=== PATIENT | female | born 1935 | race Caucasian/White ===

== ENCOUNTER 2020-04-12 11:36 | Emergency (ER) | payer OTHER ==
[~2020-04-12] VITALS: Ht 154.9 cm; Wt 55.3 kg
[2020-04-12 11:40] VITALS: BP_SYST 146
--- NOTE | 2020-04-12 11:43 | NUR ---
Patient triaged and placed in waiting room. VSS and patient appears in no acute distress at this time. Accompanied by clinical fellow , awaiting available bed, and MD notified of need for MSE.
[2020-04-12] MEDS ORDERED: NACL 0.9% 1,000 ML IV ONE (12:15)
[2020-04-12 13:06] LABS: BASOPHILS # (AUTO) 0.1 K/uL (0.0-0.2); BASOPHILS % (AUTO) 0.7 % (0.0-2.0); EOSINOPHILS # (AUTO) 0.1 K/uL (0.0-0.4); EOSINOPHILS % (AUTO) 1.2 % (0.0-4.0); HEMATOCRIT 36.1 % (36-48); HEMOGLOBIN 12.5 g/dL (12.0-16.0); LYMPHOCYTES % (AUTO) 12.2 % (20.5-51.5); MEAN CORPUSCULAR HEMOGLOBIN 33 pg (27-31); MEAN CORPUSCULAR HGB CONC 35 % (32-36); MEAN CORPUSCULAR VOLUME 94 fL (79.0-98.0); MONOCYTES # (AUTO) 0.8 K/uL (0.0-1.0); MONOCYTES % (AUTO) 9.6 % (1.7-9.3); NEUTROPHILS # (AUTO) 6.5 K/uL (1.8-7.7); NEUTROPHILS % (AUTO) 76.3 % (40.0-70.0); PLATELET COUNT (AUTO) 362 K/uL (130-430); RED BLOOD CELL COUNT(AUTO) 3.83 MIL/uL (4.2-6.2); WHITE BLOOD COUNT (AUTO) 8.5 K/uL (4.8-10.8)
[2020-04-12 13:15] LABS: ANION GAP 10 (5-15); CALCIUM 8.6 mg/dL (8.4-11.0); CHLORIDE 102 mmol/L (98-107); CREATININE 0.55 mg/dL (0.55-1.30); GLUCOSE 104 mg/dL (70-99); SODIUM SERUM 134 mmol/L (136-145); UREA NITROGEN, BLOOD 6 mg/dL (8-21)
[2020-04-12 13:21] LABS: ALANINE AMINOTRANSFERASE 20 U/L (12-78); ALBUMIN 3.1 g/dL (3.4-4.8); ASPARTATE AMINOTRANSFERASE 25 U/L (10-37); TOTAL BILIRUBIN 0.6 mg/dL (0.0-1.0)
--- NOTE | 2020-04-12 15:15 | NUR ---
Patient to ER bed 7 to gown for evaluation. Side rails up. Report given to Sandra BANKS.
--- NOTE | 2020-04-12 15:20 | NUR ---
Patient presented to ER C/O ALOC. Patient BIB BLS, patient A&Ox2, skin pink & warm, denies pain, denies N/V/D. Per EMS patient patient is "more altered than usual". Patient reports feeeling weak. PT states "my doesnt want me at home"
--- NOTE | 2020-04-12 15:25 | NUR ---
, Jj Morales of PT called for update. Jj states he can not care for patient at home and he was informed by patients PMD to "bring PT to ER for SNF placement". PT will be assessed by ER MD and I informed Jj He can call insurance phone number and discuss placement with renal case manager.
--- NOTE | 2020-04-12 16:15 | NUR ---
Oscar Nina at bedside for assessment.
--- NOTE | 2020-04-12 16:32 | NUR ---
SS notes: WIENER PACKER received a call from Sandra, ED RN regarding patient who came in for "placement". WIENER PACKER met with patient at bedside. Pt alert and oriented x1. Pt appeared to be confused and responds to name. WIENER PACKER phoned spouse, Jj @ [phone]. Per Jj, pt has been confused for 3-4 years now and is worsening. Per Jj, pt "can't keep her balance" and believes pt has "dementia". Per Jj, pt receives [facility] at home for nursing and PT. Per Jj, he was told by pt's PCP to bring pt to ED for placement. WIENER PACKER educated Jj on process for memory care or assisted living placement; provided Jj with Assisted living combination operator phone number and encouraged Jj to call insurance or SS if any questions/concerns arise. WIENER PACKER provided pt with assisted living combination operator phone call card and [facility]. Sandra ED RN notified.
[2020-04-12 16:33] LABS: BILIRUBIN,URINE NEGATIVE (NEGATIVE); BLOOD, URINE NEGATIVE (NEGATIVE); CLARITY/URINE CLEAR (CLEAR); COLOR,URINE YELLOW (YELLOW); GLUCOSE,URINE NEGATIVE (NEGATIVE); KETONES,URINE NEGATIVE (NEGATIVE); LEUKOCYTE ESTERASE ,URINE NEGATIVE (NEGATIVE); NITRITE, URINE NEGATIVE (NEGATIVE); PH,URINE 7.5 (5.0-8.0); PROTEIN URINE NEGATIVE (NEGATIVE); UROBILINOGEN,URINE 0.2 (0.2-1.0)
[2020-04-12] MEDS ORDERED: POTASSIUM CHLORIDE 20 MEQ/PKT PACKET PO ONE (17:00)
--- NOTE | 2020-04-12 18:20 | NUR ---
Notified Jj Morales Pt discharged.
--- NOTE | 2020-04-12 18:45 | NUR ---
Dr. Tejada discussing discharge with of PT
[2020-04-12 18:50] VITALS: BP_SYST 139
--- NOTE | 2020-04-12 18:50 | NUR ---
Patient given written and verbal discharge instructions and verbalizes understanding. ER MD discussed with patient the results and treatment provided. Patient in stable condition. ID arm band removed. No Rx given. Patient educated on pain management and to follow up with PMD. Pain Scale0/10 . Opportunity for questions provided and answered. Medication side effect fact sheet provided.
== END 2020-04-12 18:50 | disposition home or self-care (01) ==
LOC: SED 11:36
DX: F03.90 Unspecified dementia, unspecified severity, without behavioral disturbance, psychotic disturbance, mood disturbance, and anxiety (principal); E87.6 Hypokalemia
CPT/HCPCS: 36415; 71045; 80053; 81003; 82550; 84484; 85025; 93005; 96360; 99285; J7030